=== PATIENT | male | born 1950 | race Caucasian/White ===

== ENCOUNTER 2016-06-19 18:46 | Emergency (ER) | payer MEDICARE ==
[~2016-06-19] VITALS: Ht 170.2 cm; Wt 92.0 kg
[2016-06-19 18:52] VITALS: BP 121/67; PULSE 64; RESP 18; TEMP 98.1; O2SAT 97
[2016-06-19 19:10] VITALS: RESP 17; O2SAT 98
[2016-06-19] MEDS ORDERED: DIOV80TA4 PO (19:14)
[2016-06-19] MEDS ORDERED: ROSU20 PO (19:14)
[2016-06-19] MEDS ORDERED: MELA3TAB23 (19:14)
[2016-06-19] MEDS ORDERED: ISOS20TA PO (19:14)
[2016-06-19] MEDS ORDERED: MELO7.5T4 PO (19:14)
[2016-06-19] MEDS ORDERED: LYRI150C PO (19:14)
[2016-06-19] MEDS ORDERED: PLAV75TA29 PO (19:14)
[2016-06-19] MEDS ORDERED: ASPI1TAB69 PO (19:14)
[2016-06-19] MEDS ORDERED: COLC1TAB7 PO (19:14)
[2016-06-19] MEDS ORDERED: FURO1TAB60 PO (19:14)
[2016-06-19] MEDS ORDERED: ALLO300T2 PO (19:14)
[2016-06-19] MEDS ORDERED: AMLO5 PO (19:14)
[2016-06-19] MEDS ORDERED: NITROGLYCERIN 2% OINT 1 GM PACKET TOPICAL ONE (19:15)
[2016-06-19] MEDS ORDERED: SODIUM CHLORIDE 0.9% FLUSH 5 ML FLUSH IVF PRN (19:15)
--- NOTE | 2016-06-19 19:25 | PD ---
HPI Chief Complaint: Edema Time Seen by Provider: 18:55 Travel History International Travel<30 days: No Contact w/Intl Traveler<30days: No Traveled to known affect area: No History of Present Illness HPI The patient is a 66-year-old male who presents emergency department for discoloration of fourth digit right hand and generalized weakness. [place] The patient was a bubble gum. Earlier tonight, feeling sharp, when he noticed discoloration of the fourth digit right hand. The discoloration is located over the distal aspect of the hand, he denies any pain. He also notes mild discoloration over the extensor surface of the right hand, but denies any pain. The patient does have a history of CAD with previous stents 9 as well as for previous CVAs. The patient takes aspirin and Plavix. The patient denies any trauma to the affected digit. The patient denies any paresthesias, numbness, or tingling of the fourth digit right hand. The patient denies any known history of atrial fibrillation or embolic phenomenon to the extremities. The patient does not have a local primary physician. Patient also states generalized weakness with bilateral lower extremity weakness with 6 falls earlier today. The patient states when he arrived on Friday his blood sugar "crash ", came down to 46. The patient ate his blood sugar went up to 60, the 90s, then 140s. The patient is on an insulin pump and Novolin N insulin 500. The patient denies any focal weakness of the upper or lower extremity is, but does state both lower extremities "gave out", when trying and bili earlier today. PFSH Past Medical History Hx Anticoagulant Therapy: Yes Heart Rhythm Problems: Yes Cardiac Catheterization: Yes Cardiovascular Problems: Yes High Cholesterol: Yes Diabetes: Yes (INSULIN PUMP) Patient Takes Glucophage: No Diminished Hearing: No Hypertension: Yes Musculoskeletal: Yes Neurologic: Yes (STROKE) Tetanus Vaccination: > 5 Years Influenza Vaccination: Yes Past Surgical History Cardiac Surgery: Yes (DESFIBRILATOR) Cholecystectomy: Yes Coronary Artery Bypass Graft: Yes Coronary Stent: Yes Tonsillectomy: Yes Social History Alcohol Use: No Tobacco Use: No Substance Use: No Allergies-Medications (Allergen,Severity, Reaction): Coded Allergies: No Known Allergies (Unverified , 06/19/16) Reported Meds & Prescriptions Reported Meds & Active Scripts Active Reported Meloxicam 7.5 Mg Tab 7.5 Mg PO DAILY Plavix (Clopidogrel Bisulfate) 75 Mg Tab 75 Mg PO DAILY Norvasc (Amlodipine Besylate) 5 Mg Tab 5 Mg PO DAILY Melatonin Cr (Melatonin) 3 Mg Tab Lyrica (Pregabalin) 150 Mg Cap 150 Mg PO BID Isosorbide Mononitrate 20 Mg Tab 60 Mg PO DAILY Take 2 doses 7 hours apart. Lasix (Furosemide) 40 Mg Tab 40 Mg PO DAILY Diovan (Valsartan) 80 Mg Tab 80 Mg PO DAILY Crestor (Rosuvastatin Calcium) 20 Mg Tab 20 Mg PO DAILY Colcrys (Colchicine) 0.6 Mg Tab 0.6 Mg PO DAILY Aspirin 81 Mg Tabdr 81 Mg PO DAILY Allopurinol 300 Mg Tab 400 Mg PO DAILY Review of Systems Except as stated in HPI: all other systems reviewed are Neg General / Constitutional: No: Fever HENT: Positive: Lightheadedness, No: Headaches Cardiovascular: No: Chest Pain or Discomfort Respiratory: No: Shortness of Breath Gastrointestinal: No: Nausea, Vomiting, Abdominal Pain Musculoskeletal: Positive: Weakness, Other (as noted in the history of present illness) Neurologic: Positive: Weakness, No: Paresthesia, Sensory Disturbance Physical Exam Narrative GENERAL: Awake, alert, 66-year-old male who appears his stated age and is in no acute respiratory distress. SKIN: Warm and dry. HEAD: Atraumatic. Normocephalic. EYES: Pupils equal and round. No scleral icterus. No injection or drainage. ENT: No nasal bleeding or discharge. Mucous membranes pink and moist. NECK: Trachea midline. No JVD. CARDIOVASCULAR: Regular rate and rhythm. No murmur appreciated. Heart rate in the 60s. RESPIRATORY: No accessory muscle use. Clear to auscultation. Breath sounds equal bilaterally. GASTROINTESTINAL: Abdomen soft, obese, insulin pump in place right lateral abdominal wall. MUSCULOSKELETAL: Inspection of the fourth digit of the right hand does reveal ecchymosis and purple discoloration from the DIP distally, unable to assess cap refill secondary to subungual hematoma, however, capillary refill on the fifth and third digit is less than 2 seconds. Unable to palpate right radial pulse, however, present via Doppler. Discoloration noted over the extensor surface of the right hand, but no mottling noted. NEUROLOGICAL: Awake and alert. No obvious cranial nerve deficits. Motor grossly within normal limits. Normal speech. Nonfocal. No drift of the upper or lower extremities. The patient is oriented 4 follows commands without difficulty. PSYCHIATRIC: Appropriate mood and affect; insight and judgment normal. Data Data Last Documented VS Vital Signs Date Time Temp Pulse Resp B/P Pulse Ox O2 Delivery O2 Flow Rate FiO2 06/19/16 21:09 60 17 111/66 99 Room Air 06/19/16 18:52 98.1 Orders Electrocardiogram (06/19/16 19:06) Prothrombin Time / Inr (Pt) (06/19/16 19:06) Act Partial Throm Time (Ptt) (06/19/16 19:06) Complete Blood Count With Diff (06/19/16 19:06) Comprehensive Metabolic Panel (06/19/16 19:06) Creatine Kinase (Cpk) (06/19/16 19:06) Troponin I (06/19/16 19:06) Urinalysis - C+S If Indicated (06/19/16 19:06) Ct Brain W/O Iv Contrast(Rout) (06/19/16 19:06) Chest, Single Ap (06/19/16 19:06) Ecg Monitoring (06/19/16 19:06) Iv Access Insert/Monitor (06/19/16 19:06) Oximetry (06/19/16 19:06) Blood Glucose (06/19/16 19:06) Sodium Chloride 0.9% Flush (Ns Flush) (06/19/16 19:15) Nitroglycerin 2% Oint (Nitroglycerin 2% (06/19/16 19:15) Finger ([id number]) (06/19/16 ) Splinting (06/19/16 ) Labs Laboratory Tests Test 06/19/16 06/19/16 19:11 19:20 White Blood Count 4.1 TH/MM3 Red Blood Count 4.08 MIL/MM3 Hemoglobin 12.1 GM/DL Hematocrit 36.6 % Mean Corpuscular Volume 89.8 FL Mean Corpuscular Hemoglobin 29.7 PG Mean Corpuscular Hemoglobin 33.1 % Concent Red Cell Distribution Width 16.9 % Platelet Count 70 TH/MM3 Mean Platelet Volume 9.6 FL Neutrophils (%) (Auto) 57.1 % Lymphocytes (%) (Auto) 29.0 % Monocytes (%) (Auto) 11.1 % Eosinophils (%) (Auto) 2.3 % Basophils (%) (Auto) 0.5 % Neutrophils # (Auto) 2.3 TH/MM3 Lymphocytes # (Auto) 1.2 TH/MM3 Monocytes # (Auto) 0.4 TH/MM3 Eosinophils # (Auto) 0.1 TH/MM3 Basophils # (Auto) 0.0 TH/MM3 CBC Comment AUTO DIFF Differential Comment AUTO DIFF CONFIRMED Prothrombin Time 12.0 SEC Prothromb Time International 1.1 RATIO Ratio Activated Partial 30.0 SEC Thromboplast Time Sodium Level 135 MEQ/L Potassium Level 4.7 MEQ/L Chloride Level 101 MEQ/L Carbon Dioxide Level 25.1 MEQ/L Anion Gap 9 MEQ/L Blood Urea Nitrogen 32 MG/DL Creatinine 1.84 MG/DL Estimat Glomerular Filtration 37 ML/MIN Rate Random Glucose 143 MG/DL Calcium Level 8.7 MG/DL Total Bilirubin 1.0 MG/DL Aspartate Amino Transf 31 U/L (AST/SGOT) Alanine Aminotransferase 32 U/L (ALT/SGPT) Alkaline Phosphatase 158 U/L Total Creatine Kinase 205 U/L Troponin I 0.02 NG/ML Total Protein 7.2 GM/DL Albumin 3.5 GM/DL Urine Color YELLOW Urine Turbidity CLEAR Urine pH 5.0 Urine Specific [place] 1.017 Urine Protein NEG mg/dL Urine Glucose (UA) NEG mg/dL Urine Ketones NEG mg/dL Urine Occult Blood NEG Urine Nitrite NEG Urine Bilirubin NEG Urine Urobilinogen LESS THAN 2.0 MG/DL Urine Leukocyte Esterase NEG Urine WBC 1 /hpf Urine Hyaline Casts 24 /lpf Urine Mucus FEW /lpf Microscopic Urinalysis Comment CATH-CULT NOT IND MDM Medical Decision Making Medical Screen Exam Complete: Yes Emergency Medical Condition: Yes Medical Record Reviewed: Yes Interpretation(s) EKG reveals normal sinus rhythm with a rate of 61. Q wave in lead 2, 3, and aVF. Tall R-wave in lead V2 noted. Last Impressions Head CT 06/19/161905 Signed Impressions: Service Date/Time: Sunday, June 19, 2016 20:53 - CONCLUSION: No acute intracranial disease. Rene Valentin MD Chest X-Ray 06/19/161905 Signed Impressions: Service Date/Time: Sunday, June 19, 2016 19:30 - CONCLUSION: 1. No infiltrate seen. 2. Cardiomegaly and left-sided defibrillator. Rene Valentin MD Finger X-Ray 06/19/16 0000 Signed Impressions: Service Date/Time: Sunday, June 19, 2016 19:33 - CONCLUSION: 1. Questionable nondisplaced fracture of the tuft of the fourth digit. Rene Valentin MD Laboratory Tests Test 06/19/16 06/19/16 19:11 19:20 White Blood Count 4.1 TH/MM3 Red Blood Count 4.08 MIL/MM3 Hemoglobin 12.1 GM/DL Hematocrit 36.6 % Mean Corpuscular Volume 89.8 FL Mean Corpuscular Hemoglobin 29.7 PG Mean Corpuscular Hemoglobin 33.1 % Concent Red Cell Distribution Width 16.9 % Platelet Count 70 TH/MM3 Mean Platelet Volume 9.6 FL Neutrophils (%) (Auto) 57.1 % Lymphocytes (%) (Auto) 29.0 % Monocytes (%) (Auto) 11.1 % Eosinophils (%) (Auto) 2.3 % Basophils (%) (Auto) 0.5 % Neutrophils # (Auto) 2.3 TH/MM3 Lymphocytes # (Auto) 1.2 TH/MM3 Monocytes # (Auto) 0.4 TH/MM3 Eosinophils # (Auto) 0.1 TH/MM3 Basophils # (Auto) 0.0 TH/MM3 CBC Comment AUTO DIFF Differential Comment AUTO DIFF CONFIRMED Prothrombin Time 12.0 SEC Prothromb Time International 1.1 RATIO Ratio Activated Partial 30.0 SEC Thromboplast Time Sodium Level 135 MEQ/L Potassium Level 4.7 MEQ/L Chloride Level 101 MEQ/L Carbon Dioxide Level 25.1 MEQ/L Anion Gap 9 MEQ/L Blood Urea Nitrogen 32 MG/DL Creatinine 1.84 MG/DL Estimat Glomerular Filtration 37 ML/MIN Rate Random Glucose 143 MG/DL Calcium Level 8.7 MG/DL Total Bilirubin 1.0 MG/DL Aspartate Amino Transf 31 U/L (AST/SGOT) Alanine Aminotransferase 32 U/L (ALT/SGPT) Alkaline Phosphatase 158 U/L Total Creatine Kinase 205 U/L Troponin I 0.02 NG/ML Total Protein 7.2 GM/DL Albumin 3.5 GM/DL Urine Color YELLOW Urine Turbidity CLEAR Urine pH 5.0 Urine Specific [place] 1.017 Urine Protein NEG mg/dL Urine Glucose (UA) NEG mg/dL Urine Ketones NEG mg/dL Urine Occult Blood NEG Urine Nitrite NEG Urine Bilirubin NEG Urine Urobilinogen LESS THAN 2.0 MG/DL Urine Leukocyte Esterase NEG Urine WBC 1 /hpf Urine Hyaline Casts 24 /lpf Urine Mucus FEW /lpf Microscopic Urinalysis Comment CATH-CULT NOT IND Differential Diagnosis Differential diagnosis includes embolic phenomenon, Buerger's disease, arterial occlusion, peripheral vascular disease, fracture, hypoglycemia, CVA, intracranial hemorrhage, hyponatremia, UTI. Narrative Course IV was established, labs are drawn and sent, and the patient was placed on cardiac telemetry monitoring and continuous pulse oximetry monitoring. CT of brain and CTA of the right upper extremity was ordered. Nitro paste was placed to the fourth digit of the right hand. Heparin drip was initially held for CT of the brain. Bedside Accu-Chek was obtained. X-ray of the fourth digit right hand and chest x-ray were obtained. X-ray of the fourth digit reveals a nondisplaced fracture, resulting in a subungual hematoma. The Nitropaste was taken off of the fourth digit, and a splint was placed on the fourth digit. CT the brain was negative. The patient with was given a trial of ambulation, was able to walk with a cane, there was no obvious ataxia. I had a discussion with the patient regarding 23 hour observation for PT evaluation and possible neurology evaluation. Finger to nose is normal, [id number] was normal. The patient has no obvious other cerebellar signs and cannot have an MRI because he has a pacemaker. I had a discussion with the patient regarding 23 hour observation, he would prefer to be discharged and follow with his primary physician in [place]. The patient will be provided a copy of his CT results, lab results, and x-ray results at discharge. He is advised to return if symptoms worsen or progress. Diagnosis Primary Impression: Closed fracture of tuft of distal phalanx of finger Qualified Code: S62.639A - Closed fracture of tuft of distal phalanx of finger , initial encounter Additional Impressions: Weakness Frequent falls Patient Instructions: General Instructions Additional Instructions: Please provide a patient a copy of CT results, x-ray results, and lab results at discharge. Return if symptoms worsen or progress. Follow-up with your primary physician. Disposition: 01 DISCHARGE HOME Condition: Stable Syd Portillo MD Jun 19, 2016 19:25
--- NOTE | 2016-06-19 19:37 | RADRPT ---
EXAM DATE/TIME: 06/19/2016 19:33 [facility] COMPARISON: No previous studies available for comparison. INDICATIONS : Right hand, fourth digit pain and bruising after fall. MEDICAL HISTORY : None. SURGICAL HISTORY : None. ENCOUNTER: Initial ACUITY: 1 day PAIN SCORE: 10/10 LOCATION: Right distal hand, 4th digit. FINDINGS: Examination of the fourth digit of the right hand demonstrates questionable fracture of the tuft of t he ring finger. No other definite fractures. Mild degenerative changes.. No radiopaque foreign dilcia s are seen. The soft tissues are intact. CONCLUSION: 1. Questionable nondisplaced fracture of the tuft of the fourth digit. Rene Valentin MD on June 19, 2016 at 19:34 Board Certified Radiologist. This report was verified electronically.
[2016-06-19 19:54] LABS: AUTOMATED NEUTROPHIL # 2.3 TH/MM3 (1.8-7.7); BASOPHIL % 0.5 % (0.0-2.0); EOSINOPHIL # 0.1 TH/MM3 (0-0.4); EOSINOPHIL % 2.3 % (0.0-4.0); HEMATOCRIT 36.6 % (39.0-51.0); LYMPHOCYTE # 1.2 TH/MM3 (1.0-4.8); MEAN CELL VOLUME 89.8 FL (80.0-100.0); MEAN CORPUSCULAR HEMOGLOBIN 29.7 PG (27.0-34.0); MEAN CORPUSCULAR HGB CONC 33.1 % (32.0-36.0); MONO % 11.1 % (0.0-8.0); NEUT % 57.1 % (16.0-70.0); PLATELET COUNT 70 TH/MM3 (150-450); RED BLOOD COUNT 4.08 MIL/MM3 (4.50-5.90); RED CELL DISTRIBUTION WIDTH 16.9 % (11.6-17.2); WHITE BLOOD COUNT 4.1 TH/MM3 (4.0-11.0)
[2016-06-19 19:56] LABS: HEMO FLAGS AUTO DIFF
[2016-06-19 19:59] VITALS: BP 102/58; PULSE 68; RESP 17; O2SAT 98
--- NOTE | 2016-06-19 20:08 | RADRPT ---
EXAM DATE/TIME: 06/19/2016 19:30 [facility] COMPARISON: No previous studies available for comparison. INDICATIONS : Short of breath, weakness. MEDICAL HISTORY : Hypertension. SURGICAL HISTORY : Pacemaker. ENCOUNTER: Initial ACUITY: 1 day PAIN SCORE: 0/10 LOCATION: Bilateral chest FINDINGS: A single view of the chest demonstrates the lungs to be symmetrically aerated without evidence of mas s, infiltrate or effusion. Left-sided pacemaker/defibrillator with a single intact lead. Heart enlarg ed. Pulmonary vascularity normal. The cardiomediastinal contours are unremarkable. Osseous structure s are intact. CONCLUSION: 1. No infiltrate seen. 2. Cardiomegaly and left-sided defibrillator. Rene Valentin MD on June 19, 2016 at 20:06 Board Certified Radiologist. This report was verified electronically.
[2016-06-19 20:10] LABS: INTERNATIONAL NORMALIZED RATIO 1.1 RATIO
[2016-06-19 20:19] LABS: BLOOD, URINE NEG (NEG); GLUCOSE,URINE NEG (NEG); HYALINE CAST, URINE 24 /lpf (RARE); KETONE, URINE NEG (NEG); MUCUS URINE FEW /lpf (OCC); NITRITE,URINE NEG (NEG); URINE COLOR YELLOW (YELLW/STRAW)
[2016-06-19 20:19] LABS: ANION GAP 9 MEQ/L (5-15); AST (GOT) 31 U/L (15-37); BICARBONATE 25.1 MEQ/L (21.0-32.0); BLOOD UREA NITROGEN 32 MG/DL (7-18); CHLORIDE 101 MEQ/L (98-107); GLOMERULAR FILTRATION RATE 37 ML/MIN (>89); POTASSIUM 4.7 MEQ/L (3.5-5.1); SODIUM (NA) 135 MEQ/L (136-145)
[2016-06-19 20:20] LABS: COMMENT (UR) CATH-CULT NOT IND; CULTURE IF INDICATED CATH CULTURE NOT IND
[2016-06-19 20:24] LABS: ALKALINE PHOSPHATASE 158 U/L (45-117); ALT (GPT) 32 U/L (12-78); CREATINE KINASE 205 U/L (39-308)
[2016-06-19 21:01] LABS: SCAN/DIFF AUTO DIFF CONFIRMED
--- NOTE | 2016-06-19 21:06 | RADRPT ---
EXAM DATE/TIME: 06/19/2016 20:53 [facility] COMPARISON: No previous studies available for comparison. INDICATIONS : Generalized weakness after long trip. RADIATION DOSE: 41.96 CTDIvol (mGy) MEDICAL HISTORY : Stroke. Cardiovascular disease Hypertension. SURGICAL HISTORY : CABG ENCOUNTER: Initial ACUITY: 1 day PAIN SCALE: 0/10 LOCATION: cranial TECHNIQUE: Multiple contiguous axial images were obtained of the head. Using automated exposure control and adj ustment of the mA and/or kV according to patient size, radiation dose was kept as low as reasonably a chievable to obtain optimal diagnostic quality images. FINDINGS: CEREBRUM: The ventricles are normal for age. No evidence of midline shift, mass lesion, hemorrhage or acute in farction. No extra-axial fluid collections are seen. POSTERIOR FOSSA: The cerebellum and brainstem are intact. The 4th ventricle is midline. The cerebellopontine angle i s unremarkable. EXTRACRANIAL: The visualized portion of the orbits is intact. SKULL: The calvaria is intact. No evidence of skull fracture. CONCLUSION: No acute intracranial disease. Rene Valentin MD on June 19, 2016 at 21:04 Board Certified Radiologist. This report was verified electronically.
[2016-06-19 21:09] VITALS: BP 111/66; PULSE 60; RESP 17; O2SAT 99
[2016-06-19 22:20] VITALS: BP 120/81; TEMP 97.8
--- NOTE | 2016-06-20 21:09 | EKG ---
Date Performed: 06/19/2016 Time Performed: 18:55:05 PTAGE: 66 years EKG: Sinus rhythm INFERIOR MYOCARDIAL INFARCTION PROBABLE ANTEROLATERAL MYOCARDIAL INFARCTION ABNORMAL ECG NO PREVIOUS TRACING DOCTOR: Jake Duffy Interpretating Date/Time 06/20/2016 21:04:09
== END 2016-06-19 22:20 | disposition home or self-care (01) ==
LOC: NEPE 18:46
DX: S62.664A Nondisplaced fracture of distal phalanx of right ring finger, initial encounter for closed fracture (principal); R53.1 Weakness; R23.8 Other skin changes; R94.31 Abnormal electrocardiogram [ECG] [EKG]; I25.10 Atherosclerotic heart disease of native coronary artery without angina pectoris; E11.9 Type 2 diabetes mellitus without complications; I10 Essential (primary) hypertension; E78.00 Pure hypercholesterolemia, unspecified; Z98.61 Coronary angioplasty status; Z91.81 History of falling; Z79.01 Long term (current) use of anticoagulants; Z79.4 Long term (current) use of insulin; Z87.39 Personal history of other diseases of the musculoskeletal system and connective tissue; Z86.73 Personal history of transient ischemic attack (TIA), and cerebral infarction without residual deficits; X58.XXXA Exposure to other specified factors, initial encounter
CPT/HCPCS: 29130; 70450; 71010; 73140; 80053; 81001; 82550; 84484; 85025; 85610; 85730; 93005